=== PATIENT | female | born 2000 | race African-American/Black ===

== ENCOUNTER 2023-07-05 01:34 | Emergency (ER) | payer OTHER ==
[~2023-07-05] VITALS: Ht 162.6 cm; Wt 52.2 kg
[2023-07-05] MEDS ORDERED: DOXYCYCLINE HYCLATE (100 MG) 100 MG TABLET PO ONE (02:00)
[2023-07-05] MEDS ORDERED: CEFTRIAXONE 500 MG VIAL IM ONE (02:00)
[2023-07-05 02:20] LABS: APPEARANCE,URINE CLOUDY (CLEAR); BILIRUBIN,URINE NEGATIVE (NEGATIVE); BLOOD, URINE 1+ Ery/uL (NEGATIVE); COLOR,URINE YELLOW (YELLOW); KETONES,URINE TRACE mg/dL (NEGATIVE); LEUKOCYTE ESTERASE ,URINE 2+ (NEGATIVE); NITRITE, URINE NEGATIVE (NEGATIVE); PROTEIN,URINE TRACE mg/dl (NEGATIVE); UGLUCOSE NEGATIVE (NEGATIVE); UROBILINOGEN,URINE 0.2 EU/dL (0.2)
[2023-07-05 02:24] LABS: PREGNANCY TEST URINE QUAL NEGATIVE (NEGATIVE)
[2023-07-05] MEDS ORDERED: CEFTRIAXONE 500 MG VIAL ONE (02:28)
[2023-07-05] MEDS ORDERED: DOXYCYCLINE HYCLATE (100 MG) 100 MG TABLET ONE (02:29)
[2023-07-05] MEDS ORDERED: DOXY100C2 PO ×2 (02:52→03:14)
[2023-07-05 03:00] VITALS: BP 99/67; TEMP 98.3; O2SAT 99
[2023-07-05 03:03] LABS: ADD URINE CULTURE YES; BACTERIA,URINE 1+ /HPF (None Seen); MUCUS,URINE Few /LPF (None Seen); SQUAMOUS EPITHELIAL CELL,UR 21-50 /HPF (None Seen); WBC,URINE 51-80 /HPF (0-3)
[2023-07-05 15:29] LABS: HIV-1 p24 ANTIGEN NON REACTIVE (NONREACTIVE); HIV-1/2 ANTIBODY NON REACTIVE (NONREACTIVE)
[2023-07-06 23:06] LABS: CHLAMYDIA TRACHOMATIS NAA Negative (Negative); NEISSERIA GONORRHOEAE NAA Positive (Negative)
== END 2023-07-05 03:15 | disposition home or self-care (01) ==
LOC: ER 01:36
DX: A64 Unspecified sexually transmitted disease (principal); Z79.899 Other long term (current) drug therapy; Z60.2 Problems related to living alone
CPT/HCPCS: 99283; 96372; 87086; 84703; 81001; 36415; 87806; 87491; 87591; J0696